=== PATIENT | male | born 1955 | race African-American/Black ===

== ENCOUNTER 2022-05-28 09:30 | Inpatient (IN) | payer MEDICARE, MEDICAID ==
[~2022-05-28] VITALS: Ht 175.3 cm; Wt 75.8 kg
[2022-05-28 10:28] LABS: BASOPHILS % 0.4 % (0.0-2.0); EOSINOPHILS % 2.5 % (0.0-5.0); HEMATOCRIT. 41.9 % (42.0-52.0); LYMPHOCYTES % 28.1 % (20.0-50.0); MEAN CORPUSCULAR HEMOGLOBIN 28.3 pg (28.0-32.0); MEAN CORPUSCULAR VOLUME 84.5 fL (80.0-94.0); MEAN PLATELET VOLUME 7.4 fl (7.4-10.4); MONOCYTES % 11.9 % (2.0-8.0); NEUTROPHILS % 57.1 % (40.0-76.0); PLATELET 246 x1000/uL (130-400); RED BLOOD CELL COUNT 4.95 mill/uL (4.7-6.1); RED CELL DISTRIBUTION WIDTH 15.1 % (11.6-14.6)
[2022-05-28 10:33] LABS: CHLORIDE 107 mEq/L (98-107)
[2022-05-28] MEDS ORDERED: VISCOUS LIDOCAINE 2% 15 ML UDC PO STA (10:50)
[2022-05-28] MEDS ORDERED: MAGNESIUM/ALUMINUM HYDROXIDE/SIMETHICONE 30ML UDC PO STA (10:50)
[2022-05-28] MEDS ORDERED: FAMOTIDINE 20MG TABLET PO ONE (11:00)
[2022-05-28] MEDS ORDERED: IOHEXOL-300 100 ML BOTTLE ONE (13:41)
[2022-05-28] MEDS ORDERED: NALOXONE HCL 0.4MG/ML VIAL IV PRN (15:45)
[2022-05-28] MEDS: MORPHINE SULFATE 2 MG/ML CPJ (NOT FOR IM USE) IV PRN ×2 (16:28→20:55)
[2022-05-28] MEDS: SUCRALFATE 1 G/10 ML UDC PO SCH (17:15)
[2022-05-28] MEDS ORDERED: CLONIDINE 0.1MG TABLET PO PRN (21:00)
[2022-05-28] MEDS ORDERED: ONDANSETRON HCL 4MG/2ML INJ IV PRN (21:00)
[2022-05-28] MEDS ORDERED: ZOLPIDEM TARTRATE 5MG TABLET PO PRN (21:00)
[2022-05-28] MEDS ORDERED: CLONIDINE 0.1MG TABLET PO NR (21:00)
[2022-05-28] MEDS ORDERED: IPRATROPIUM/ALBUTEROL 0.5-3(2.5)MG/3ML NEB HHN PRN (21:00)
[2022-05-28] MEDS ORDERED: ACETAMINOPHEN 325MG TABLET PO PRN ×2 (21:00)
[2022-05-28] MEDS ORDERED: DIPHENHYDRAMINE 50MG/ML VIAL IV PRN (21:00)
[2022-05-28 21:44] VITALS: BP 165/107
[2022-05-28] MEDS ORDERED: AMLODIPINE 5MG TABLET PO NR (23:00)
[2022-05-29] VITALS: BP 114/65
[2022-05-29] MEDS ORDERED: ALBU05 IH (00:28)
[2022-05-29] MEDS ORDERED: OXYC30TA86 MT (00:28)
[2022-05-29] MEDS ORDERED: AMLO2.5T2 PO (00:28)
[2022-05-29] MEDS ORDERED: ALPR2TAB2 MT (00:28)
[2022-05-29] MEDS ORDERED: LORA10CA PO (00:28)
[2022-05-29] MEDS ORDERED: OXYCODONE HCL 5MG TABLET PO PRN (01:00)
[2022-05-29] MEDS ORDERED: DEXTROSE 50% WATER 50ML SYRINGE IV PRN (01:00)
[2022-05-29] MEDS ORDERED: ALPRAZOLAM 0.25 MG TABLET PO PRN (01:00)
[2022-05-29 04:00] VITALS: BP 138/83
[2022-05-29] MEDS: MORPHINE SULFATE 2 MG/ML CPJ (NOT FOR IM USE) IV PRN (04:47)
[2022-05-29] MEDS: DEXT 5%/0.45% NACL 1000ML 1,000 ML IV SCH ×2 (05:00→22:47)
[2022-05-29 07:18] LABS: BASOPHILS % 0.9 % (0.0-2.0); EOSINOPHILS % 2.7 % (0.0-5.0); HEMATOCRIT. 38.7 % (42.0-52.0); HEMOGLOBIN. 13.2 g/dL (14.0-18.0); LYMPHOCYTES % 28.8 % (20.0-50.0); MEAN CORPUSCULAR HEMOGLOBIN 28.5 pg (28.0-32.0); MEAN CORPUSCULAR VOLUME 83.6 fL (80.0-94.0); MEAN PLATELET VOLUME 8.2 fl (7.4-10.4); MONOCYTES % 14.8 % (2.0-8.0); NEUTROPHILS % 52.8 % (40.0-76.0); PLATELET 224 x1000/uL (130-400); RED BLOOD CELL COUNT 4.62 mill/uL (4.7-6.1); RED CELL DISTRIBUTION WIDTH 14.8 % (11.6-14.6)
[2022-05-29 07:20] LABS: CHLORIDE 105 mEq/L (98-107)
[2022-05-29] MEDS: SUCRALFATE 1 G/10 ML UDC PO SCH ×5 (07:20→22:46)
[2022-05-29] MEDS: BLOOD SUGAR DIAGNOSTIC STRIP TEST SCH ×4 (07:20→21:00)
[2022-05-29] MEDS: INSULIN LISPRO 100 UNITS/ML SUBCUT SCH ×4 (07:50→21:00)
[2022-05-29 08:00] VITALS: BP 148/100
[2022-05-29] MEDS: PANTOPRAZOLE SODIUM 40 MG/VIAL IV SCH (09:00)
[2022-05-29] MEDS ORDERED: POTASSIUM CHLORIDE 20MEQ TABLET SR PO SCH (09:30)
[2022-05-29 12:00] VITALS: BP 125/81
[2022-05-29 16:00] VITALS: BP 133/74
[2022-05-29 17:16] LABS: HEPATITIS B SURFACE ANTIGEN NEGATIVE
[2022-05-29 20:00] VITALS: BP 130/88
[2022-05-30] VITALS (16 sets, daily range): BP systolic 119–170; BP diastolic 79–105
[2022-05-30] MEDS: MORPHINE SULFATE 2 MG/ML CPJ (NOT FOR IM USE) IV PRN ×2 (01:19→10:12)
[2022-05-30] MEDS: DEXT 5%/0.45% NACL 1000ML 1,000 ML IV SCH (03:00)
[2022-05-30 07:02] LABS: INR 1.1; PROTHROMBIN TIME 11.9 sec (9.6-11.0)
[2022-05-30] MEDS: SUCRALFATE 1 G/10 ML UDC PO SCH ×2 (07:20→13:07)
[2022-05-30] MEDS ORDERED: SODIUM BICARBONATE 4% (2.4MEQ) 5ML VIAL IV ONE (07:20)
[2022-05-30] MEDS ORDERED: LIDOCAINE HCL 1% 10 MG/ML 10ML VIAL ONE (07:21)
[2022-05-30 07:25] LABS: BASOPHILS % 0.4 % (0.0-2.0); EOSINOPHILS % 3.3 % (0.0-5.0); HEMATOCRIT. 37.2 % (42.0-52.0); HEMOGLOBIN. 12.5 g/dL (14.0-18.0); LYMPHOCYTES % 33.2 % (20.0-50.0); MEAN CORPUSCULAR HEMOGLOBIN 28.3 pg (28.0-32.0); MEAN CORPUSCULAR VOLUME 84.1 fL (80.0-94.0); MEAN PLATELET VOLUME 8.1 fl (7.4-10.4); MONOCYTES % 14.4 % (2.0-8.0); NEUTROPHILS % 48.7 % (40.0-76.0); PLATELET 198 x1000/uL (130-400); RED BLOOD CELL COUNT 4.43 mill/uL (4.7-6.1); RED CELL DISTRIBUTION WIDTH 15.1 % (11.6-14.6)
[2022-05-30] MEDS: BLOOD SUGAR DIAGNOSTIC STRIP TEST SCH ×2 (07:25→12:20)
[2022-05-30] MEDS: INSULIN LISPRO 100 UNITS/ML SUBCUT SCH ×2 (07:25→12:50)
[2022-05-30 08:10] LABS: CHLORIDE 107 mEq/L (98-107)
[2022-05-30] MEDS ORDERED: FENTANYL CITRATE/PF 50MCG/ML 2ML VIAL ONE (08:36)
[2022-05-30] MEDS ORDERED: FENTANYL CITRATE/PF 50MCG/ML 2ML VIAL IV NR (08:36)
[2022-05-30] MEDS: PANTOPRAZOLE SODIUM 40 MG/VIAL IV SCH (10:13)
[2022-05-30 13:45] LABS: HEMATOCRIT 41.1 % (42.0-52.0); HEMOGLOBIN 13.9 g/dL (14.0-18.0)
[2022-05-30] MEDS ORDERED: FAMOTIDINE 20MG/2ML VIAL IV SCH (21:00)
== END 2022-05-30 15:43 | disposition home or self-care (01) ==
LOC: ER 09:30 → 6EST 17:26
PROVIDERS: ADMIT Internal Medicine; ATTEND Internal Medicine
PROC: 0FB13ZX Excision of Right Lobe Liver, Percutaneous Approach, Diagnostic (ICD-10-PCS; principal; 2022-05-30)
DX: K73.9 Chronic hepatitis, unspecified (principal); K74.00 Hepatic fibrosis, unspecified; E11.9 Type 2 diabetes mellitus without complications; I10 Essential (primary) hypertension; J44.9 Chronic obstructive pulmonary disease, unspecified; Z20.822 Contact with and (suspected) exposure to COVID-19; F17.210 Nicotine dependence, cigarettes, uncomplicated; M47.9 Spondylosis, unspecified; N28.1 Cyst of kidney, acquired; N40.0 Benign prostatic hyperplasia without lower urinary tract symptoms; Z87.11 Personal history of peptic ulcer disease; Z86.73 Personal history of transient ischemic attack (TIA), and cerebral infarction without residual deficits; Z79.4 Long term (current) use of insulin
CPT/HCPCS: 36415; 74177; 76705; 76942; 80048; 80053; 80076; 82105; 82378; 82962; 83036; 84484; 85014; 85018; 85025; 86301; 86705; 86709; 86803; 87070; 87075; 87102; 87116; 87340; 87426; 88307; 93005; 99285; C9113; J2270; J3010; J3490; Q9967

== ENCOUNTER 2022-12-01 09:29 | Emergency (ER) | payer MEDICARE, MEDICAID ==
[~2022-12-01] VITALS: Ht 175.3 cm; Wt 72.0 kg
[~2022-12-01 09:29] MED LIST: ALBU05 IH; ALPR2TAB2 MT; AMLO2.5T2 PO; LORA10CA PO; OXYC30TA86 MT
[2022-12-01 09:32] VITALS: O2SAT 99
[2022-12-01 10:37] LABS: BASOPHILS % 1.4 % (0.0-2.0); EOSINOPHILS % 3.6 % (0.0-5.0); HEMATOCRIT. 43.1 % (42.0-52.0); HEMOGLOBIN. 14.2 g/dL (14.0-18.0); LYMPHOCYTES % 25.8 % (20.0-50.0); MEAN CORPUSCULAR HEMOGLOBIN 27.5 pg (28.0-32.0); MEAN CORPUSCULAR HGB CONC 32.9 g/dL (31.0-37.0); MEAN CORPUSCULAR VOLUME 83.4 fL (80.0-94.0); MEAN PLATELET VOLUME 7.8 fl (7.4-10.4); MONOCYTES % 12.8 % (2.0-8.0); NEUTROPHILS % 56.4 % (40.0-76.0); PLATELET 237 x1000/uL (130-400); RED BLOOD CELL COUNT 5.17 mill/uL (4.7-6.1); RED CELL DISTRIBUTION WIDTH 16.2 % (11.6-14.6); WHITE BLOOD COUNT 5.6 x1000/uL (4.5-11.0)
[2022-12-01 10:48] LABS: ALBUMIN 3.5 g/dL (3.4-5.0); CARBON DIOXIDE 27 mEq/L (21-32); CHLORIDE 107 mEq/L (98-107); INDEX HEMOLYSI 1 (1-3); INDEX ICTERIC 1 (1-4); INDEX LIPEMIC 1 (1-3); POTASSIUM 3.8 mEq/L (3.5-5.1); SODIUM 138 mEq/L (136-145); UREA NITROGEN BLOOD 9 mg/dL (7-21)
[2022-12-01 10:55] LABS: INR 1.1; PROTHROMBIN TIME 11.9 sec (9.6-11.0)
[2022-12-01 10:56] LABS: ALANINE AMINOTRANSFERASE 72 IU/L (13-61); ASPARTATE AMINOTRANSFERASE 130 IU/L (15-37); GLUCOSE 105 mg/dL (70-105); PROTEIN TOTAL 8.3 g/dL (6.0-8.3); TROPONIN I HIGH SENSITIVITY 4 ng/L (<78)
[2022-12-01] MEDS ORDERED: HYDROCODONE/ACETAMINOPHEN 5/325MG TABLET PO NR (14:45)
[2022-12-01] MEDS ORDERED: HYDROCODONE/ACETAMINOPHEN 5/325MG TABLET PO ONE (14:45)
[2022-12-01] MEDS ORDERED: HYDR-4001 MT ×2 (17:16→17:22)
[2022-12-01 17:43] VITALS: BP 112/68; PULSE 59; RESP 17; TEMP 98.9
== END 2022-12-01 17:45 | disposition home or self-care (01) ==
LOC: ER 09:29
DX: R16.0 Hepatomegaly, not elsewhere classified (principal); R10.11 Right upper quadrant pain; J44.9 Chronic obstructive pulmonary disease, unspecified; E11.9 Type 2 diabetes mellitus without complications; I10 Essential (primary) hypertension; F19.90 Other psychoactive substance use, unspecified, uncomplicated; Z98.890 Other specified postprocedural states
CPT/HCPCS: 36415; 71045; 76700; 80053; 84484; 85025; 93005; 99285